=== PATIENT | female | born 1935 | race Caucasian/White ===

== ENCOUNTER 2017-12-30 18:07 | Emergency (ER) | payer OTHER ==
[~2017-12-30] VITALS: Ht 160 cm; Wt 70.8 kg
[~2017-12-30 18:07] MED LIST: LISINOPRIL10 MG PO
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
[2017-12-30 19:16] VITALS: BP 166/79
--- NOTE | 2017-12-30 19:21 | RADIOLOGY REPORT ---
EXAMINATION: XR KNEE, LEFT CLINICAL INFORMATION: Pain status post trauma COMPARISON: None TECHNIQUE: 5 views of the left knee. FINDINGS: Soft tissue swelling overlying the patella tendon. No gross disruption patella taye. Generalized mild degenerative changes. No fracture deformity. IMPRESSION: No fracture. If internal derangement is suspected, consider MRI.
== END 2017-12-30 19:23 ==
LOC: ERH 18:07
DX: S80.02XA Contusion of left knee, initial encounter (principal); V49.40XA Driver injured in collision with unspecified motor vehicles in traffic accident, initial encounter; Y92.410 Unspecified street and highway as the place of occurrence of the external cause
CPT/HCPCS: 73562-LT